=== PATIENT | male | born 1930 | race Caucasian/White ===

== ENCOUNTER 2017-06-20 11:36 | Inpatient (IN) | payer BC, OTHER ==
[~2017-06-20] VITALS: Ht 170.2 cm; Wt 93.4 kg
[~2017-06-20 11:36] MED LIST: ADLSR60 PO; ASPI81TA25 PO; ATEN50TA PO; ATOR-24 PO; CLOP1TAB5 PO; TRAM-10 PO
[2017-06-20] MEDS ORDERED: CEFTRIAXONE SOD INJ 1 GM ADDVIAL IV STA (12:05)
[2017-06-20] MEDS ORDERED: IPRATROPIUM BROMIDE NEB SOLN 0.02% 2.5 ML VIAL INH STA (12:05)
[2017-06-20] MEDS ORDERED: LEVALBUTEROL 1.25MG/0.5ML NEB INH STA (12:05)
--- NOTE | 2017-06-20 12:22 | EMERGENCY ROOM VISIT NOTE ---
History Report prepared by Wilberto: Simba Neal Under the Supervision of: Dr. Kd Dorado M.D. First contact with patient: 11:55 Chief Complaint: CARDIAC ASSESSMENT Stated Complaint: NEW ONSET AFIB Nursing Triage Summary: patient reports "I had a head cold for the past couple days. productive yellow cough. I went to the dr and they sent me here" patient has new onset afib. patient denies any chest pain. patient states he is short of breath. productive cough thick yellow sputum History of Present Illness The patient is a 86 year old male who presents to the Emergency Room for evaluation of persistent new-onset A-fib. The patient was seen by his PCP just prior to arrival for five days of cold-like symptoms, and was referred to the ED when found to be in new onset A-fib. He denies any chest pain, SOB, palpitations, fevers or chills. His cold-like symptoms include productive cough and fatigue. His cough produces a thick, yellow sputum. The patient took left over Amoxicillin for his cold, but has not taken any over the counter cold medications. He has a history of one cardiac stent placement. He has no history of COPD or emphysema. The patient has no history of CVA, or GI bleed. Source of History: patient Onset: Just prior to arrival Quality: other (new-onset A-fib) Timing: other (persistent) Associated Symptoms: + cough, + fatigue, No fevers, No chills, No chest pain , No SOB Note: The patient denies palpitations. Review of Systems See HPI for pertinent positives & negatives. A total of 10 systems reviewed and were otherwise negative. Past Medical & Surgical Medical Problems: (1) Arthroscopy of knee joint (2) Benign hypertension (3) Enlarged prostate (4) Excision of skin cancer (5) Hypercholesterolemia (6) New onset a-fib (7) New onset a-fib (8) Prostate surgery (9) Skin cancer Family History No pertinent family history stated. Social History Smoking Status: Never Smoker Alcohol Use: none Drug Use: none Marital Status: Housing Status: lives with significant other Occupation Status: retired Current/Historical Medications Scheduled Aspirin (Aspirin Ec), 81 MG PO DAILY Atenolol (Tenormin), 50 MG PO DAILY Atorvastatin (Lipitor), 80 MG PO DAILY Lisinopril (Prinivil), 5 MG PO DAILY Nifedipine (Nifedipine Er), 1 TAB PO DAILY Scheduled PRN Tramadol (Ultram), 50 MG PO Q8H PRN for Pain Allergies Coded Allergies: Sulfa Antibiotics (Verified Allergy, Unknown, `, 06/20/17) Physical Exam Vital Signs Date Time Temp Pulse Resp B/P (MAP) Pulse Ox O2 Delivery O2 Flow Rate FiO2 06/20/17 15:42 81 16 137/95 96 Room Air 06/20/17 13:52 77 16 122/76 97 Room Air 06/20/17 12:32 77 13 123/79 97 Room Air 06/20/17 12:25 77 13 94 Room Air 06/20/17 12:18 77 06/20/17 11:41 94 Room Air 06/20/17 11:41 94 Room Air 06/20/17 11:41 36.7 82 20 141/87 94 Room Air Physical Exam GENERAL: Patient is in no acute distress. HEENT: No acute trauma, normocephalic atraumatic, mucous membranes moist, no nasal congestion, no scleral icterus. NECK: No stridor, no adenopathy, no meningismus, trachea is midline. LUNGS: Wheezing bilaterally. Persistent dry cough noted. No respiratory distress , breath sounds are equal. HEART: Unable to hear cardiac tones secondary to lung sounds. ABDOMEN: Soft, nontender, bowel sounds positive, no hernias, no peritonitis. EXTREMITIES: No cyanosis, full range of motion of all the joints without pain or difficulty, no signs for acute trauma. Mild bilateral pedal edema. NEUROLOGIC: Oriented x 3, no acute motor or sensory deficits, no focal weakness. SKIN: No rash, no jaundice, no diaphoresis. Medical Decision & Procedures ER Provider Diagnostic Interpretation: Radiology results as stated below per my review and radiologist interpretation: CHEST ONE VIEW PORTABLE FINDINGS: There is mild elevation of the right hemidiaphragm. No consolidation is identified to suggest pneumonia and there is no evidence of pulmonary edema. Mild cardiomegaly is noted. IMPRESSION: 1. No acute cardiopulmonary findings. 2. Mild cardiomegaly without radiographic evidence of pulmonary edema. Electronically signed by: Pete Yan M.D. 06/20/2017 1:05 PM Laboratory Results 06/20/17 12:54 06/20/17 12:54 Test 06/20/17 12:20 06/20/17 12:54 Influenza Type A Antigen Neg for Influ A (NEG) Influenza Type B Antigen Neg for Influ B (NEG) Red Blood Count 4.82 M/uL (4.7-6.1) Mean Corpuscular Volume 90.9 fL (80-100) Mean Corpuscular Hemoglobin 30.3 pg (25-34) Mean Corpuscular Hemoglobin Concent 33.3 g/dl (32-36) RDW Standard Deviation 50.4 fL (36.4-46.3) RDW Coefficient of Variation 15.0 % (11.5-14.5) Mean Platelet Volume 10.5 fL (7.4-10.4) Prothrombin Time 10.3 SECONDS (9.0-12.0) Prothromb Time International Ratio 1.0 (0.9-1.1) Activated Partial Thromboplast Time 31.3 SECONDS (21.0-31.0) Partial Thromboplastin Ratio 1.2 Anion Gap 7.0 mmol/L (3-11) Est Creatinine Clear Calc Drug Dose 31.7 ml/min Estimated GFR () 38.4 Estimated GFR (Non- 33.1 BUN/Creatinine Ratio 15.6 (10-20) Calcium Level 8.3 mg/dl (8.5-10.1) Magnesium Level 2.2 mg/dl (1.8-2.4) Total Bilirubin 0.7 mg/dl (0.2-1) Aspartate Amino Transf (AST/SGOT) 36 U/L (15-37) Alanine Aminotransferase (ALT/SGPT) 28 U/L (12-78) Alkaline Phosphatase 74 U/L (45-117) Troponin I 0.068 ng/ml (0-0.045) Total Protein 7.8 gm/dl (6.4-8.2) Albumin 3.3 gm/dl (3.4-5.0) Globulin 4.5 gm/dl (2.5-4.0) Albumin/Globulin Ratio 0.7 (0.9-2) Thyroid Stimulating Hormone (TSH) 1.690 uIu/ml (0.300-4.500) Laboratory results reviewed by me. Medications Administered Medications (Trade) Dose Ordered Sig/Andrew Route Start Time Stop Time Status Last Admin Dose Admin Levalbuterol (Xopenex 1.25MG/ 0.5ML Neb) 1.25 mg NOW STAT INH 06/20/17 12:05 06/20/17 12:07 DC 06/20/17 12:25 1.25 MG Ipratropium [place] (Atrovent 0.02% 0.5MG/2.5ML Neb) 0.5 mg NOW STAT INH 06/20/17 12:05 06/20/17 12:07 DC 06/20/17 12:25 0.5 MG Ceftriaxone Sodium (Rocephin Inj) 1 gm NOW STAT IV 06/20/17 12:05 06/20/17 12:07 DC 06/20/17 13:12 1 GM ECG Indication: other (new-onset A-fib) Rate (beats per minute): 76 Rhythm: atrial fibrillation Findings: PVC, RBBB, other (No obvious ischemia. ) ED Course 1201: The patient was evaluated in room B10. A complete history and physical exam was performed. 1205: Ordered Rocephin Inj 1 gm IV, Atrovent 0.02% 0.5 mg/2.5 mL Neb 0.5 mg INH , Xopenex 1.25 mg/0.5 mL Neb 1.25 mg INH. 1416: Upon reexamination the patient is resting comfortably. I discussed results and treatment plan with the patient. He verbalizes agreement and understanding. I spoke with Dr. La Yu of the [facility]. We discussed the patient's results and findings. The patient will be evaluated by [facility] for further management. Medical Decision The patient is a 86 year old male who presents to the ED with complaints of new- onset A-fib. Differential diagnoses considered include pneumonia, bronchitis, CHF, dysrhythmia, OK, electrolyte imbalance, anemia, and dehydration. There is no leukocytosis or concerning anemia. Renal panel testing shows some renal insufficiency, this appears baseline. No significant electrolyte abnormality requiring correction. The patient appears to be in a euthyroid state. There is no hepatitis. Chest x-ray does not show pneumonia or CHF. EKG shows A. fib which is rate controlled, there is a right bundle branch block. Cardiac enzyme testing times one is slightly elevated-this could indicate some cardiac injury/strain. Blood cultures are pending, influenza testing is negative. The patient received a Xopenex Atrovent neb. He was given a dose of IV ceftriaxone as antibiotic coverage. The patient is resting comfortably. He is not toxic in appearance. Given the respiratory issues, given the new onset A. fib and given the elevation to the troponin, a hospital stay was felt warranted. I spoke to the patient and case management. The on-call hospitalist was consulted. Medication Reconcilliation Current Medication List: was personally reviewed by me Blood Pressure Screening Patient's blood pressure: Elevated blood pressure Blood pressure disposition: Elevated BP felt to be situational Consults Time Called: 1411 Consulting Physician: Dr. La Yu [facility] Hospitalist Returned Call: [phone] Discussed the patient's case. The patient will be evaluated for further management. Impression Primary Impression: New onset a-fib Additional Impressions: Acute bronchitis Wheezing Elevated troponin Scribe Attestation The scribe's documentation has been prepared under my direction and personally reviewed by me in its entirety. I confirm that the note above accurately reflects all work, treatment, procedures, and medical decision making performed by me. Departure Information Dispostion Being Evaluated By Hospitalist Referrals No Doctor, Assigned (PCP) Patient Instructions [facility] Problem Qualifiers Additional Impressions: Acute bronchitis Bronchitis organism: unspecified organism Qualified Codes: J20.9 - Acute bronchitis, unspecified
[2017-06-20 12:25] VITALS: PULSE 77; O2SAT 94
--- NOTE | 2017-06-20 13:06 | DIAGNOSTIC IMAGING REPORT ---
CHEST ONE VIEW PORTABLE CLINICAL HISTORY: Chest pain. Separate atrial fibrillation COMPARISON STUDY: Chest radiograph April 06, 2014. FINDINGS: There is mild elevation of the right hemidiaphragm. No consolidation is identified to suggest pneumonia and there is no evidence of pulmonary edema. Mild cardiomegaly is noted. IMPRESSION: 1. No acute cardiopulmonary findings. 2. Mild cardiomegaly without radiographic evidence of pulmonary edema. Electronically signed by: Pete Yan M.D. 06/20/2017 1:05 PM Dictated Date/Time: 06/20/2017 1:03 PM
[2017-06-20] MEDS ORDERED: NIFE1TAB56 PO (13:07)
[2017-06-20] MEDS ORDERED: LISI-729 PO (13:07)
[2017-06-20] MEDS ORDERED: ATOR-26 PO (13:07)
[2017-06-20] MEDS ORDERED: TRAM-10 PO (13:07)
[2017-06-20] MEDS ORDERED: ATEN50TA8 PO (13:07)
[2017-06-20] MEDS ORDERED: ASPI81TA28 PO (13:07)
[2017-06-20 13:12] LABS: HEMATOCRIT 43.8 % (42-52); MEAN CELL VOLUME 90.9 fL (80-100); MEAN CORPUSCULAR HEMOGLOBIN 30.3 pg (25-34); MEAN CORPUSCULAR HGB CONC 33.3 g/dl (32-36); MEAN PLATELET VOLUME 10.5 fL (7.4-10.4); PLATELET COUNT 174 K/uL (130-400); RED BLOOD COUNT 4.82 M/uL (4.7-6.1); WHITE BLOOD COUNT 5.85 K/uL (4.8-10.8)
[2017-06-20 13:28] LABS: BUN/CREATININE RATIO 15.6 (10-20); CALCIUM 8.3 mg/dl (8.5-10.1); CREATININE 1.79 mg/dl (0.60-1.40); MAGNESIUM 2.2 mg/dl (1.8-2.4); POTASSIUM 3.7 mmol/L (3.5-5.1)
[2017-06-20 13:45] LABS: PARTIAL THROMBOPLASTIN RATIO 1.2; PROTHROMBIN TIME (PATIENT) 10.3 SECONDS (9.0-12.0)
[2017-06-20 13:46] LABS: ALB/GLOB RATIO 0.7 (0.9-2); THYROID STIMULATING HORMONE 1.69 uIu/ml (0.300-4.500)
[2017-06-20] MEDS ORDERED: ACETAMINOPHEN 325 MG TAB PO PRN (15:45)
[2017-06-20] MEDS ORDERED: IV FLUIDS COMPLETED PRN (16:00)
--- NOTE | 2017-06-20 16:23 | History and Physical ---
History & Physical Date & Time of Service: Jun 20, 2017 at 15:19 Chief Complaint: New Onset Afib Primary Care Physician: No Doctor, Assigned History of Present Illness Mr. Hall has been feeling ill for the past five days with running nose and cough with thick yellow mucous and wheezing, no fever or chills, no sob. has bronchitis. He felt that he was improving but since his was going to the doctor, he thought he would go too. When the pcp listened to him at the office, he was in an irregular rhythm so an EKG was performed and he was found to be in a.fib which is new for him. He does feel lightheaded when he stands but otherwise denies cardiac symptoms. ROS Constitutional: no chills, aches, sweats or fever Respiratory: see HPI Cardiac: no chest pain, palpitations, edema, orthopnea GI: no abdominal pain, nausea, vomiting, diarrhea or constipation : no dysuria or hesitancy Extremities: no joint pain or weakness Skin: no rash All other systems reviewed and negative Pmhx : htn, hld, ischemic cariomyopathy, [place] with stent, CAD, BPH, Past Medical/Surgical History Medical Problems: (1) Arthroscopy of knee joint Status: Resolved (2) Benign hypertension Status: Chronic (3) Enlarged prostate Status: Chronic (4) Excision of skin cancer Status: Resolved (5) Hypercholesterolemia Status: Chronic (6) Prostate surgery Status: Resolved (7) Skin cancer Status: Chronic Social History Smoking Status: Current Every Day Smoker (quit fifty years ago) Smokeless Tobacco Use: No Alcohol Use: socially Drug Use: none Marital Status: Housing status: lives with significant other Occupational Status: retired ([employer]) Immunizations History of Influenza Vaccine: Yes History of Tetanus Vaccine?: Unknown History of Pneumococcal: Yes Pneumococcal Date: Jul 20, 2010 History of Hepatitis B Vaccine: No Multi-Drug Resistant Organisms History of MDRO: No Allergies Coded Allergies: Sulfa Antibiotics (Verified Allergy, Unknown, `, 06/20/17) Home Medications Scheduled Aspirin (Aspirin Ec), 81 MG PO DAILY Atenolol (Tenormin), 50 MG PO DAILY Atorvastatin (Lipitor), 80 MG PO DAILY Lisinopril (Prinivil), 5 MG PO DAILY Nifedipine (Nifedipine Er), 1 TAB PO DAILY Scheduled PRN Tramadol (Ultram), 50 MG PO Q8H PRN for Pain Physical Exam Vital Signs Date Time Temp Pulse Resp B/P (MAP) Pulse Ox O2 Delivery O2 Flow Rate FiO2 06/20/17 13:52 77 16 122/76 97 Room Air 06/20/17 12:32 77 13 123/79 97 Room Air 06/20/17 12:25 77 13 94 Room Air 06/20/17 12:18 77 06/20/17 11:41 94 Room Air 06/20/17 11:41 94 Room Air 06/20/17 11:41 36.7 82 20 141/87 94 Room Air General: no distress Eyes: normal inspection, PERLL Respiratory: chest non tender, coarse bases with expiratory wheezing bilaterally , no respiratory distress, no accessory muscle use Cardiac: regular rate and rhythm, no rub or gallop, no murmur, no edema, GI/: active bowel sounds, no abd pain or tenderness, soft, non distended Extremities: normal range of motion, normal strength, non tender Neuro/Psych: alert and oriented x 3, normal mood and affect Skin: normal color, dry Diagnostics Laboratory Results Results Past 24 Hours Test 06/20/17 12:20 06/20/17 12:54 Range/Units Influenza Type A Antigen Neg for Influ A NEG Influenza Type B Antigen Neg for Influ B NEG White Blood Count 5.85 4.8-10.8 K/uL Red Blood Count 4.82 4.7-6.1 M/uL Hemoglobin 14.6 14.0-18.0 g/dL Hematocrit 43.8 42-52 % Mean Corpuscular Volume 90.9 80-100 fL Mean Corpuscular Hemoglobin 30.3 25-34 pg Mean Corpuscular Hemoglobin Concent 33.3 32-36 g/dl RDW Standard Deviation 50.4 36.4-46.3 fL RDW Coefficient of Variation 15.0 11.5-14.5 % Platelet Count 174 130-400 K/uL Mean Platelet Volume 10.5 7.4-10.4 fL Prothrombin Time 10.3 9.0-12.0 SECONDS Prothromb Time International Ratio 1.0 0.9-1.1 Activated Partial Thromboplast Time 31.3 21.0-31.0 SECONDS Partial Thromboplastin Ratio 1.2 Sodium Level 140 136-145 mmol/L Potassium Level 3.7 3.5-5.1 mmol/L Chloride Level 109 98-107 mmol/L Carbon Dioxide Level 24 21-32 mmol/L Anion Gap 7.0 3-11 mmol/L Blood Urea Nitrogen 28 7-18 mg/dl Creatinine 1.79 0.60-1.40 mg/dl Est Creatinine Clear Calc Drug Dose 31.7 ml/min Estimated GFR () 38.4 Estimated GFR (Non- 33.1 BUN/Creatinine Ratio 15.6 10-20 Random Glucose 90 70-99 mg/dl Calcium Level 8.3 8.5-10.1 mg/dl Magnesium Level 2.2 1.8-2.4 mg/dl Total Bilirubin 0.7 0.2-1 mg/dl Aspartate Amino Transf (AST/SGOT) 36 15-37 U/L Alanine Aminotransferase (ALT/SGPT) 28 12-78 U/L Alkaline Phosphatase 74 45-117 U/L Troponin I 0.068 0-0.045 ng/ml Total Protein 7.8 6.4-8.2 gm/dl Albumin 3.3 3.4-5.0 gm/dl Globulin 4.5 2.5-4.0 gm/dl Albumin/Globulin Ratio 0.7 0.9-2 Thyroid Stimulating Hormone (TSH) 1.690 0.300-4.500 uIu/ml Microbiology Results 06/20/17 Blood Culture, Received Pending 06/20/17 Blood Culture, Received Pending CXR normal EKG Atrial fibrillation with premature ventricular or aberrantly conducted complexes Left axis deviation Right bundle branch block Abnormal ECG When compared with ECG of 25-MAR-2013 07:04, with premature ventricular or aberrantly conducted complexes are now Present Confirmed by KEV VEGA ([id number]) on 06/20/2017 2:35:06 PM Impression Assessment and Plan Mr. Hall is an 86 year old man here for new onset A.fib and acute bronchitis A.fib, increased troponin, EKG changes - admit tele - Last EKG was 2012 at the time of his WA, currently he appears to have some depressions in his lateral leads - Echo - continue atenolol - consult cardiology - appreciate recommendations - CT scan of head for lightheadedness - will start heparin gtt when CT resulted if negative and await cards input for longer term anticoag - trend trops Acute bronchitis - with his self treatment with amoxicillin and and Rocephin in ED, he has had 3 days of abx so far, will continue amox for two more days. - nebs, prednisone - blood, sputum cultures pending, flu negative - cbc am CAD, HLD, HTN - continue ASA, atenolol, statin, nifedipine - EKG with chest pain CKD stage III - renal dosing medications, avoid nephrotoxins - prp am - baseline appears to be around 1.6, 1.79 today - hold of on IVF as patient has EF of 35% on echo 2013 and is taking good po I personally interviewed and examined the patient. I agree with history of present illness and physical exam mentioned above, I also performed my own history taking and examination. Past medical history and review of system has been obtained by myself I reviewed all pertinent labs and studies Reviewed current medications I discussed and formulated of the assessment and plan mentioned above by Shae Yovany Please refer to the Summary mentioned below. General Appearance: not in acute distress /obese Eyes: normal Sclerae, extraocular muscle intact ENT: hearing grossly normal Neck: supple Respiratory/Chest: normal air entry bilateral , no respiratory distress, no accessory muscle use, no rhonchi Cardiovascular: irregular rate, rhythm, + systolic murmur Abdomen: non tender, soft, no masses, but appears distended Extremities: no edema Neurologic/Psychiatric: Awake alert oriented only to place and person moves all extremities sensation intact cranial nerves II-12 appear to be intact Skin: normal color, warm/dry, no rash 86/M P/W URTI/cough, found to have A fib new onset and positive trop Assessment new onset Afib bronchitis clinically suspected HEIDI elevated trop Plan Admit to telemetry Consult cardio Obtain 2-D echo continue Abx for bronchitis Continue home meds check HgbA1C to R/O Diabetes mellitus DVT prophylaxis Madeleine Yu MD, [facility] Telemetry Advanced Directives Existing Advance Directive: No Existing Living Will: No Existing Power of Senior Attorney: No Existing Health Care Proxy: No Resuscitation Status DO NOT RESUSCITATE VTE Prophylaxis Risk Level: Moderate Given or contraindicated: SCD's Social Service Consult None Apply
--- NOTE | 2017-06-20 16:47 | DIAGNOSTIC IMAGING REPORT ---
CT HEAD WITHOUT CONTRAST (CT) CLINICAL HISTORY: Lightheadedness. Set atrial fibrillation. COMPARISON STUDY: No previous studies for comparison. TECHNIQUE: Axial CT of the brain is performed from the vertex to the skull base. IV contrast was not administered for this examination. A dose lowering technique was utilized adhering to the principles of ALARA. CT DOSE: 638.56 mGycm FINDINGS: No intra or extra-axial mass lesions are visualized. There is no CT evidence of acute cortical infarction. There is no evidence of midline shift. There is no acute hemorrhage. No calvarial fractures are visualized. There are patchy white matter hypodensities likely on a small vessel basis. 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 There is a lacunar type infarct in the region of the left external capsule. There is no evidence of pathologic ventricular dilatation. There is trace fluid within the sphenoid sinus. There is moderately extensive mucosal thickening within the ethmoid sinuses. IMPRESSION: 1. No acute intracranial findings 2. Moderately extensive mucosal thickening within the ethmoid sinuses Electronically signed by: Yeison Brown M.D. 06/20/2017 4:45 PM Dictated Date/Time: 06/20/2017 4:44 PM
[2017-06-20 16:54] VITALS: BP 155/80; PULSE 82; TEMP 36.4; O2SAT 93; Ht 170.2 cm; Wt 93.4 kg
[2017-06-20] MEDS: ALBUT/IPRATROP 3MG/0.5MG NEB 3 ML VIAL INH SCH ×2 (18:13→19:17)
[2017-06-20] MEDS ORDERED: HEPARIN IV LOW DOSE NO BOLUS SCH (18:36)
[2017-06-20 19:17] VITALS: PULSE 71; O2SAT 92
[2017-06-20 19:20] VITALS: BP 118/64; PULSE 99; TEMP 36.4; O2SAT 98
[2017-06-20] MEDS: HEPARIN 25,000 UNIT/500ML D5W 500 ML IV PRN (19:37)
[2017-06-20 19:43] LABS: BASO % 0.5 %; BASO ABS # 0.03 K/uL (0-0.2); EOS % 4.1 %; HEMATOCRIT 40.4 % (42-52); IG% 0.2 %; LYMPH % 40.9 %; LYMPH ABS # 2.32 K/uL (1.2-3.4); MEAN CELL VOLUME 90.8 fL (80-100); MEAN CORPUSCULAR HEMOGLOBIN 31.2 pg (25-34); MEAN PLATELET VOLUME 10.7 fL (7.4-10.4); MONO % 10.8 %; NEUT % 43.5 %; PLATELET COUNT 175 K/uL (130-400); RED BLOOD COUNT 4.45 M/uL (4.7-6.1); WHITE BLOOD COUNT 5.67 K/uL (4.8-10.8)
[2017-06-20 19:44] LABS: COMPLETE YES; MEAN CORPUSCULAR HGB CONC 34.4 g/dl (32-36)
[2017-06-20 19:48] LABS: PARTIAL THROMBOPLASTIN RATIO 1.2; PROTHROMBIN TIME (PATIENT) 10.7 SECONDS (9.0-12.0)
[2017-06-20 20:00] VITALS: O2SAT 98
[2017-06-20] MEDS ORDERED: AZITHROMYCIN 250 MG TAB PO ONE (22:00)
[2017-06-21] VITALS (17 sets, daily range): BP systolic 124–148; BP diastolic 70–84; PULSE 72–107; TEMP 36.4–37; O2SAT 91–98
[2017-06-21 01:52] LABS: PARTIAL THROMBOPLASTIN RATIO 1.9
[2017-06-21] MEDS: ALBUT/IPRATROP 3MG/0.5MG NEB 3 ML VIAL INH SCH ×4 (07:02→20:09)
[2017-06-21 07:27] LABS: HEMATOCRIT 44.8 % (42-52); MEAN CELL VOLUME 91.1 fL (80-100); MEAN CORPUSCULAR HEMOGLOBIN 31.1 pg (25-34); MEAN CORPUSCULAR HGB CONC 34.2 g/dl (32-36); MEAN PLATELET VOLUME 10.5 fL (7.4-10.4); PLATELET COUNT 191 K/uL (130-400); RED BLOOD COUNT 4.92 M/uL (4.7-6.1); WHITE BLOOD COUNT 4.47 K/uL (4.8-10.8)
[2017-06-21] MEDS: AZITHROMYCIN 250 MG TAB PO SCH (07:58)
[2017-06-21] MEDS: LACTOBACILLUS ACIDOPHILUS 1 GM PACK PO SCH ×3 (07:58→16:37)
[2017-06-21 07:59] LABS: BUN/CREATININE RATIO 15.8 (10-20); CALCIUM 8.8 mg/dl (8.5-10.1); CHOLESTEROL/HDL RATIO 3.1; CREATININE 1.84 mg/dl (0.60-1.40)
[2017-06-21 08:12] LABS: ESTIMATED AVERAGE GLUCOSE 114 mg/dl; HA1C FLAG Normal (Normal)
--- NOTE | 2017-06-21 08:59 | Hospitalist Progress Note ---
Hospitalist Progress Note Date of Service Jun 21, 2017. Subjective Pt evaluation today including: conversation w/ patient, physical exam, chart review, lab review, review of studies Pain: None PO Intake: Good Voiding: no voiding problems The patient was seen and examined this morning. Pt reports feeling very well today. He denies feelings of lightheadedness, dizziness, chest pain, shortness of breath. He has not truly exerted himself to determine if he's LESLIE. He has ambulated to the bathroom but denies SOB. Pt is currently on a heparin gtt and awaiting cardiology to see him. Pt does report a cough which is occasionally productive with yellow mucous. He has not tried mucinex at home and doesn't want to at this time because "I don't want to take more pills"; discussion held that this was for temporary relief and he still denies. Continuing abx x day #4. He denies any fever, chills or sweats. ROS: 6 point ROS reviewed and otherwise negative. Objective Vital Signs Date Time Temp Pulse Resp B/P (MAP) Pulse Ox O2 Delivery O2 Flow Rate FiO2 06/21/17 07:08 36.4 107 20 142/84 (103) 92 Room Air 06/21/17 07:02 85 18 93 Room Air 06/21/17 04:10 98 Room Air 06/21/17 04:01 36.6 87 21 138/84 (102) 91 Room Air 06/21/17 00:05 36.6 80 20 125/75 (92) 93 Room Air 06/21/17 00:00 98 Room Air 06/20/17 20:00 98 Room Air 06/20/17 19:20 36.4 99 16 118/64 (82) 98 Room Air 06/20/17 19:17 71 13 92 Room Air 06/20/17 16:54 36.4 82 20 155/80 93 Room Air 06/20/17 16:23 36.7 78 18 151/89 96 06/20/17 15:42 81 16 137/95 96 Room Air 06/20/17 13:52 77 16 122/76 97 Room Air 06/20/17 12:32 77 13 123/79 97 Room Air 06/20/17 12:25 77 13 94 Room Air 06/20/17 12:18 77 06/20/17 11:41 94 Room Air 06/20/17 11:41 94 Room Air 06/20/17 11:41 36.7 82 20 141/87 94 Room Air Physical Exam General Appearance: WD/WN, no apparent distress Eyes: PERRL, EOMI ENT: hearing grossly normal, pharynx normal Neck: supple, no JVD Respiratory/Chest: no respiratory distress, no accessory muscle use, + pertinent finding (on room air, coarse breath sounds throughout with +exp wheeze. 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7 fL Prothrombin Time 10.3 SECONDS 10.7 SECONDS Prothromb Time International Ratio 1.0 1.0 Activated Partial Thromboplast Time 31.3 SECONDS 31.5 SECONDS Partial Thromboplastin Ratio 1.2 1.2 Sodium Level 140 mmol/L Potassium Level 3.7 mmol/L Chloride Level 109 mmol/L Carbon Dioxide Level 24 mmol/L Anion Gap 7.0 mmol/L Blood Urea Nitrogen 28 mg/dl Creatinine 1.79 mg/dl Est Creatinine Clear Calc Drug Dose 31.7 ml/min Estimated GFR () 38.4 Estimated GFR (Non- 33.1 BUN/Creatinine Ratio 15.6 Random Glucose 90 mg/dl Calcium Level 8.3 mg/dl Magnesium Level 2.2 mg/dl Total Bilirubin 0.7 mg/dl Aspartate Amino Transf (AST/SGOT) 36 U/L Alanine Aminotransferase (ALT/SGPT) 28 U/L Alkaline Phosphatase 74 U/L Troponin I 0.068 ng/ml 0.074 ng/ml Total Protein 7.8 gm/dl Albumin 3.3 gm/dl Globulin 4.5 gm/dl Albumin/Globulin Ratio 0.7 Thyroid Stimulating Hormone (TSH) 1.690 uIu/ml Neutrophils (%) (Auto) 43.5 % Lymphocytes (%) (Auto) 40.9 % Monocytes (%) (Auto) 10.8 % Eosinophils (%) (Auto) 4.1 % Basophils (%) (Auto) 0.5 % Neutrophils # (Auto) 2.47 K/uL Lymphocytes # (Auto) 2.32 K/uL Monocytes # (Auto) 0.61 K/uL Eosinophils # (Auto) 0.23 K/uL Basophils # (Auto) 0.03 K/uL Immature Granulocyte % (Auto) 0.2 % Immature Granulocyte # (Auto) 0.01 K/uL Test 06/21/17 01:21 06/21/17 07:08 06/21/17 08:05 Activated Partial Thromboplast Time 48.8 SECONDS Partial Thromboplastin Ratio 1.9 Troponin I 0.062 ng/ml White Blood Count 4.47 K/uL Red Blood Count 4.92 M/uL Hemoglobin 15.3 g/dL Hematocrit 44.8 % Mean Corpuscular Volume 91.1 fL Mean Corpuscular Hemoglobin 31.1 pg Mean Corpuscular Hemoglobin Concent 34.2 g/dl RDW Standard Deviation 50.1 fL RDW Coefficient of Variation 14.9 % Platelet Count 191 K/uL Mean Platelet Volume 10.5 fL Sodium Level 137 mmol/L Potassium Level mmol/L 3.5 mmol/L Chloride Level 105 mmol/L Carbon Dioxide Level 23 mmol/L Anion Gap 9.0 mmol/L Blood Urea Nitrogen 29 mg/dl Creatinine 1.84 mg/dl Est Creatinine Clear Calc Drug Dose 30.2 ml/min Estimated GFR () 37.1 Estimated GFR (Non- 32.0 BUN/Creatinine Ratio 15.8 Random Glucose 139 mg/dl Estimated Average Glucose 114 mg/dl Hemoglobin A1c 5.6 % Calcium Level 8.8 mg/dl Triglycerides Level 107 mg/dl Cholesterol Level 151 mg/dl HDL Cholesterol 49 mg/dl LDL Cholesterol, Calculated 81 mg/dl VLDL Cholesterol, Calculated 21 mg/dl Cholesterol/HDL Ratio 3.1 Assessment and Plan This is a 86 yo M presenting with new onset A.fib and acute bronchitis New onset A.fib Elevated troponin EKG changes - admit tele - Last EKG was 2012 at the time of his OK, currently he appears to have some depressions in his lateral leads - repeat this am. - Echo pending - consult cardiology - appreciate recs- await cards input for longer term anticoagulation - Pt follows with Dr. Olmedo as an outpatient - CT scan of head for lightheadedness - negative - showing ethmoid sinus with thickened mucous likely sinusitis - Continue on heparin gtt for now - Troponins trending back down on 3rd set. - continue atenolol, statin and asa daily - Holding lisinopril 5 mg for now with slight bump in Cr. Acute bronchitis - with his self treatment with amoxicillin and and Rocephin in ED, he has had 3 days of abx at time of admission - 06/21 = day #4. Continue amox for 5 day course. - duonebs prn - prednisone 40 mg daily with taper down - BCx in process, sputum cultures pending, flu negative - no leukocytosis CAD, HLD, HTN - continue ASA, atenolol, statin - EKG with chest pain CKD stage III - renal dosing medications, avoid nephrotoxins - prp am - baseline appears to be around 1.6, - 1.8 today - Holding home lisinopril - hold of on IVF as patient has EF of 35% on echo 2013 - will encourage Po intake. Likely reactant from afib. CODE STATUS: DNR Disposition: From home, lives with . Discharge possible in 1 day.
[2017-06-21] MEDS ORDERED: AMOXICILLIN 500 MG CAP PO SCH (09:00)
[2017-06-21] MEDS ORDERED: CEFTRIAXONE SOD INJ 1 GM in DEXTROSE 5% ADD-VANTAGE 50ML 50 ML IV SCH (10:00)
[2017-06-21] MEDS ORDERED: PERFLUTREN LIPID MICROSPHERE (DEFINITY) IV ONE (10:56)
[2017-06-21] MEDS: ASPIRIN 81 MG ECTAB PO SCH (12:08)
[2017-06-21] MEDS: ATORVASTATIN 40 MG TAB PO SCH (12:08)
--- NOTE | 2017-06-21 14:56 | ECHOCARDIOGRAM REPORT ---
*NOTICE TO RECEIVING DEMOCRAT AGENCY This information is strictly Confidential and protected under [place] law. [place] law prohibits you from making any further disclosure of this information unless further disclosure is expressly permitted by the written consent of the person to whom it pertains or is authorized by law. A general authorization for the release of medical or other information is not sufficient for this purpose. Hospital accepts no responsibility if the information is made available to any other person, INCLUDING THE PATIENT. Interpretation Summary * Name: GHANSHYAM JEWELL Study Date: 06/21/2017 10:21 AM BP: 138/84 mmHg * Patient Location: C.2T\S\E222\S\1 HR: 89 * : 1930 (M/d/yyy) Gender: Male Height: 67 in * Age: 86 yrs Ethnicity: [place] Weight: 214 lb * Ordering Physician: Shae Pedroza * Referring Physician: Self, Referred * Performed By: Tj Jones RDCS * * Reason For Study: A-fib * BSA: 2.1 m2 * -- Conclusions -- * The left ventricle is normal in size. * There is severe concentric left ventricular hypertrophy. * Left ventricular systolic function is mildly reduced. * Ejection Fraction = 40-45%. * The distal anterior wall, apex inferoapex, and distal septum are severely hypokinetic. * The right ventricular cavity size is enlarged (proximal parasternal long axis right ventricular outflow tract dimension >3.3 cm). * The right ventricular systolic function is normal as assessed by tricuspid annular plane systolic excursion (TAPSE) (normal >1.5 cm). * The left atrium is moderately dilated. * Aortic valve sclerosis mild, without significant aortic valvular stenosis. * Mild aortic regurgitation. * There is mild to moderate mitral regurgitation. * Right ventricular systolic pressure is elevated at 30-40mmHg. Procedure Details * A complete two-dimensional transthoracic echocardiogram was performed (2D, M-mode, Doppler and color flow Doppler). * The study was technically difficult, but visualization was adequate with the administration of Definity ultrasound contrast. * A contrast injection of Definity was performed to improve assessment of LV function. * Contrast was injected into an intravenous site in the left arm. * One vial of Definity ultrasound contrast was diluted in normal saline to a total volume of 10 ml. A total of '3' ml of solution was administered during imaging. * Lot # [id number] of Definity utilized for procedure. * Expiration date . * The attending nurse who injected the contrast agent was BELEN Roque. Left Ventricle * The left ventricle is normal in size. * There is severe concentric left ventricular hypertrophy. * Left ventricular systolic function is mildly reduced. * Ejection Fraction = 40-45%. * The distal anterior wall, apex inferoapex, and distal septum are severely hypokinetic. Right Ventricle * The right ventricular cavity size is enlarged (proximal parasternal long axis right ventricular outflow tract dimension >3.3 cm). * The right ventricular systolic function is normal as assessed by tricuspid annular plane systolic excursion (TAPSE) (normal >1.5 cm). Atria * The left atrium is moderately dilated. * The right atrium is mildly dilated. Mitral Valve * There is mild mitral annular calcification. * There is mild to moderate mitral regurgitation. Tricuspid Valve * The tricuspid valve is not well visualized, but is grossly normal. * There is mild tricuspid regurgitation. * Right ventricular systolic pressure is elevated at 30-40mmHg. Aortic Valve * Aortic valve sclerosis mild, without significant aortic valvular stenosis. * Mild aortic regurgitation. Pulmonic Valve * The pulmonic valve is not well seen, but is grossly normal. Great Vessels * The aortic root is normal size. Pericardium/Pleural * There is no pericardial effusion. Great Vessels * IVC not seen Left Ventricular Diastolic Function * Diastolic dysfunction, Grade II, consistent with elevated left atrial pressure. MMode 2D Measurements and Calculations IVSd 2.0 cm IVSs 2.4 cm LVIDd 4.1 cm LVIDs 3.1 cm LVPWd 1.7 cm LVPWs 1.9 cm IVS/LVPW 1.2 FS 25.0 % EDV(Teich) 73.6 ml ESV(Teich) 36.8 ml EF(Teich) 49.9 % EDV(cubed) 68.1 ml ESV(cubed) 28.8 ml EF(cubed) 57.8 % % IVS thick 19.6 % % LVPW thick 12.3 % LV mass(C)d 334.0 grams LV mass(C)dI 160.5 grams/m\S\2 LV mass(C)s 306.5 grams LV mass(C)sI 147.3 grams/m\S\2 SV(Teich) 36.7 ml SI(Teich) 17.6 ml/m\S\2 SV(cubed) 39.4 ml SI(cubed) 18.9 ml/m\S\2 Ao root diam 3.9 cm Ao root area 12.2 cm\S\2 ACS 2.2 cm LA dimension 4.4 cm asc Aorta Diam 3.9 cm LA/Ao 1.1 LVOT diam 2.2 cm LVOT area 3.7 cm\S\2 LVAd ap4 24.6 cm\S\2 LVLd ap4 7.6 cm EDV(MOD-sp4) 66.2 ml EDV(sp4-el) 68.3 ml LVAs ap4 15.5 cm\S\2 LVLs ap4 6.9 cm ESV(MOD-sp4) 28.9 ml ESV(sp4-el) 29.9 ml EF(MOD-sp4) 56.4 % EF(sp4-el) 56.2 % LVAd ap2 25.3 cm\S\2 LVLd ap2 8.2 cm EDV(MOD-sp2) 62.7 ml EDV(sp2-el) 65.8 ml LVAs ap2 15.5 cm\S\2 LVLs ap2 7.1 cm ESV(MOD-sp2) 26.2 ml ESV(sp2-el) 28.5 ml EF(MOD-sp2) 58.1 % EF(sp2-el) 56.7 % LVLd %diff -2.97 % EDV(MOD-bp) 71.2 ml LVLs %diff 5.3 % ESV(MOD-bp) 26.7 ml EF(MOD-bp) 62.6 % SV(MOD-sp4) 37.4 ml SI(MOD-sp4) 17.9 ml/m\S\2 SV(MOD-sp2) 36.5 ml SI(MOD-sp2) 17.5 ml/m\S\2 SV(MOD-bp) 44.5 ml SI(MOD-bp) 21.4 ml/m\S\2 SV(sp4-el) 38.4 ml SI(sp4-el) 18.4 ml/m\S\2 SV(sp2-el) 37.3 ml SI(sp2-el) 17.9 ml/m\S\2 Doppler Measurements and Calculations MV E max anthony 102.3 cm/sec MV dec time 0.19 sec Ao V2 max 137.8 cm/sec Ao max PG 7.6 mmHg Ao max PG (full) 4.5 mmHg TIFFANIE(V,A) 2.4 cm\S\2 TIFFANIE(V,D) 2.4 cm\S\2 AI max anthony 335.6 cm/sec AI max PG 45.0 mmHg AI dec slope 180.9 cm/sec\S\2 AI P1/2t 543.4 msec LV V1 max PG 3.1 mmHg LV V1 mean PG 1.7 mmHg LV V1 max 87.9 cm/sec LV V1 mean 60.2 cm/sec LV V1 VTI 19.0 cm SV(LVOT) 70.3 ml SI(LVOT) 33.8 ml/m\S\2 PA V2 max 101.8 cm/sec PA max PG 4.1 mmHg PI end-d anthony 161.3 cm/sec TR max anthony 287.1 cm/sec
[2017-06-21] MEDS: HEPARIN 25,000 UNIT/500ML D5W 500 ML IV PRN (22:47)
[2017-06-22] VITALS (11 sets, daily range): BP systolic 130–154; BP diastolic 79–90; PULSE 82–94; TEMP 36.3–36.7; O2SAT 92–97
[2017-06-22] MEDS ORDERED: METOPROLOL SUCC 50MG EXT REL TAB PO SCH
[2017-06-22] MEDS: ALBUT/IPRATROP 3MG/0.5MG NEB 3 ML VIAL INH SCH ×3 (06:47→14:37)
[2017-06-22 06:49] LABS: HEMATOCRIT 41.9 % (42-52); MEAN CELL VOLUME 90.5 fL (80-100); MEAN CORPUSCULAR HGB CONC 33.2 g/dl (32-36); MEAN PLATELET VOLUME 10.2 fL (7.4-10.4); PLATELET COUNT 198 K/uL (130-400); RED BLOOD COUNT 4.63 M/uL (4.7-6.1); WHITE BLOOD COUNT 10.46 K/uL (4.8-10.8)
[2017-06-22 07:01] LABS: PARTIAL THROMBOPLASTIN RATIO 2.1
[2017-06-22 07:10] LABS: BUN/CREATININE RATIO 18.9 (10-20); CALCIUM 8.4 mg/dl (8.5-10.1); CREATININE 1.76 mg/dl (0.60-1.40); POTASSIUM 3.7 mmol/L (3.5-5.1)
[2017-06-22 08:16] LABS: PARTIAL THROMBOPLASTIN RATIO 2.2
--- NOTE | 2017-06-22 08:30 | Hospitalist Progress Note ---
Hospitalist Progress Note Date of Service Jun 22, 2017. Subjective Pt evaluation today including: conversation w/ patient, physical exam, chart review, lab review, review of studies Pain: None PO Intake: Good Voiding: no voiding problems The patient was seen and examined this morning. Pt reports doing well today. His son, Ravi is at bedside. Pt denies any chest pain, shortness of breath, palpitations or flutter, shortness of breath. Pt slept well overnight. Still has a slight cough which is nonproductive. Discussion was held regarding likely anticoagulation and further rate control. - Overnight events on tele include afib with rates in the 80s and 90s. Additional Comments: Constitutional: No fever, sweats or chills Eyes: No diplopia, no worsening or blurred vision ENT: normal hearing, no trouble swallowing Respiratory: No cough, sputum, dyspnea at rest or on exertion Cardiovascular: No chest pain, tightness or palpitations Abdomen: No pain, nausea, vomiting, diarrhea or constipation Musculoskeletal: No joint pain, calf pain, swelling Neurologic: No weakness, numbness/tingling, or balance problems Objective Vital Signs Date Time Temp Pulse Resp B/P (MAP) Pulse Ox O2 Delivery O2 Flow Rate FiO2 06/22/17 07:11 36.7 92 20 154/83 (106) 96 06/22/17 06:47 94 16 96 Room Air 06/22/17 04:16 96 Room Air 06/22/17 03:55 36.5 89 20 130/79 (96) 92 Room Air 06/22/17 00:21 96 Room Air 06/21/17 23:42 36.7 91 19 125/70 (88) 97 Room Air 06/21/17 20:00 96 Room Air 06/21/17 19:25 95 16 96 Room Air 06/21/17 19:10 37.0 72 16 124/71 (88) 94 Room Air 06/21/17 16:00 96 Room Air 06/21/17 15:20 36.8 84 18 132/72 (92) 95 Room Air 06/21/17 14:35 80 18 95 Room Air 06/21/17 12:00 95 Room Air 06/21/17 11:30 36.6 94 20 148/74 (98) 95 Room Air 06/21/17 11:15 81 18 98 Room Air Physical Exam Notes: General Appearance: WD/WN, no apparent distress Eyes: PERRL, EOMI ENT: hearing grossly normal, pharynx normal Neck: supple, no JVD Respiratory/Chest: no respiratory distress, no accessory muscle use, + pertinent finding (on room air, breath sounds improved, faint +exp wheeze. 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.) Laboratory Results Last 24 Hours Test 06/22/17 06:28 06/22/17 07:47 White Blood Count 10.46 K/uL Red Blood Count 4.63 M/uL Hemoglobin 13.9 g/dL Hematocrit 41.9 % Mean Corpuscular Volume 90.5 fL Mean Corpuscular Hemoglobin 30.0 pg Mean Corpuscular Hemoglobin Concent 33.2 g/dl RDW Standard Deviation 50.1 fL RDW Coefficient of Variation 15.0 % Platelet Count 198 K/uL Mean Platelet Volume 10.2 fL Activated Partial Thromboplast Time 55.6 SECONDS 56.9 SECONDS Partial Thromboplastin Ratio 2.1 2.2 Sodium Level 141 mmol/L Potassium Level 3.7 mmol/L Chloride Level 109 mmol/L Carbon Dioxide Level 23 mmol/L Anion Gap 10.0 mmol/L Blood Urea Nitrogen 33 mg/dl Creatinine 1.76 mg/dl Est Creatinine Clear Calc Drug Dose 31.6 ml/min Estimated GFR () 39.1 Estimated GFR (Non- 33.8 BUN/Creatinine Ratio 18.9 Random Glucose 101 mg/dl Calcium Level 8.4 mg/dl Assessment and Plan This is a 86 yo M presenting with new onset A.fib and acute bronchitis New onset A.fib Elevated troponin EKG changes - admit tele - Last EKG was 2012 at the time of his ID, at time of admission he appeared to have some depressions in his lateral leads - Echo completed: * -- Conclusions -- * The left ventricle is normal in size. * There is severe concentric left ventricular hypertrophy. * Left ventricular systolic function is mildly reduced. * Ejection Fraction = 40-45%. * The distal anterior wall, apex inferoapex, and distal septum are severely hypokinetic. * The right ventricular cavity size is enlarged (proximal parasternal long axis right ventricular outflow tract dimension >3.3 cm). * The right ventricular systolic function is normal as assessed by tricuspid annular plane systolic excursion (TAPSE) (normal >1.5 cm). * The left atrium is moderately dilated. * Aortic valve sclerosis mild, without significant aortic valvular stenosis. * Mild aortic regurgitation. * There is mild to moderate mitral regurgitation. * Right ventricular systolic pressure is elevated at 30-40mmHg. - consult cardiology - appreciate recs- await cards input for longer term anticoagulation - Pt follows with Dr. Olmedo as an outpatient - Continue on heparin gtt for now - Dr. Ching ordered Eliquis 2.5 mg BID today for anticoagulation - CT scan of head for lightheadedness - negative - showing ethmoid sinus with thickened mucous likely sinusitis - Troponins trending back down on 3rd set. - continue atenolol 50 mg daily, atorvastatin 80 mg daily and asa 81 mg daily - Holding lisinopril 5 mg for now with slight bump in Cr. Acute bronchitis - with his self treatment with amoxicillin and and Rocephin in ED, he has had 3 days of abx at time of admission - 06/21 = day #5. Finish last day - duonebs prn - prednisone 20 mg daily (day # 2) and continue taper down tomorrow - BCx NGTD, pt not producing sputum for culture, flu negative - no leukocytosis - Mucinex for pulmonary toilet, flutter therapy CAD, HLD, HTN - continue ASA, atenolol, statin - EKG with chest pain CKD stage III - renal dosing medications, avoid nephrotoxins - prp am - baseline appears to be around 1.6, - 1.76 today - Holding home lisinopril - hold of on IVF as patient has EF of 35% on echo 2013 - will encourage Po intake. CODE STATUS: DNR Disposition: From home, lives with . Discharge likely within 24 hours.
[2017-06-22] MEDS: LACTOBACILLUS ACIDOPHILUS 1 GM PACK PO SCH ×2 (08:42→11:33)
[2017-06-22] MEDS: AZITHROMYCIN 250 MG TAB PO SCH (08:43)
[2017-06-22] MEDS: ASPIRIN 81 MG ECTAB PO SCH (08:43)
[2017-06-22] MEDS: ATORVASTATIN 40 MG TAB PO SCH (08:43)
[2017-06-22] MEDS ORDERED: GUAIFENESIN 600 MG TABCR PO SCH (09:00)
[2017-06-22] MEDS ORDERED: APIXABAN 2.5 MG TAB PO SCH ×2 (12:30)
--- NOTE | 2017-06-22 14:18 | Discharge Instructions ---
Discharge Instructions Date of Service Jun 22, 2017. Admission Reason for Admission: New Onset Afib Discharge Discharge Diagnosis / Problem: Atrial Fibrillation Discharge Goals Goal(s): Decrease discomfort, Improve function, Increase independence, Improve disease control Activity Recommendations Activity Limitations: resume your previous activity Lifting Limitations: no more than 25 pounds, gradually increase as tolerated Exercise/Sports Limitations: rest today, gradually increase as tolerated May Resume Sexual Activity: when tolerated Shower/Bathe: no limitations Driving or Machine Use: Do not drive . Instructions / Follow-Up Instructions / Follow-Up You were admitted to [facility] with new onset atrial fibrillation without symptoms and acute bronchitis. During your stay here you were treated with heparin gtt to prevent clot formation with new onset atrial fibrillation. You were transitioned to oral anticoagulation called [place]. Your HR was stable in the 80s and 90s. Cardiology was consulted and helped to develop this plan - you were stable for discharge to home You have been provided with medications from our pharmacy for 2 days due to the holiday and pharmacies being closed. For acute bronchitis: You were continued on antibiotics during your admission, and finished a 5 day course. Continue taking Prednisone taper as directed below: Take 20 mg ( 2 tabs) starting 06/23. Then take 10 mg ( 1 tab) in the morning on 06/24 and 06/15. Then the prednisone taper will be finished Continue taking Mucinex 600 mg every 12 hours - you can pick this up over the counter at a drug store. Use albuterol inhaler 2 puffs every 4 hours as needed to help with shortness of breath For Atrial Fibrillation: Stop taking Atenolol. You will now start taking metoprolol instead: Take 1 tablet metoprolol succinate 100 mg every evening starting tomorrow, Start taking Eliquis 2.5 mg twice daily starting tonight, 06/22 Follow up: Follow up with your Primary Care Provider within 1 week. Follow up with Cardiology, Dr. Olmedo within 1-2 weeks. Current Hospital Diet Patient's current hospital diet: AHA Diet (Heart Healthy) Discharge Diet Recommended Diet: AHA Diet (Heart Healthy) Pending Studies Studies pending at discharge: no Laboratory Results Hemoglobin A1c Test 06/21/17 07:08 Range/Units Estimated Average Glucose 114 mg/dl Hemoglobin A1c 5.6 4.5-5.6 % Lipid Panel Test 06/21/17 07:08 Range/Units Triglycerides Level 107 0-150 mg/dl Cholesterol Level 151 0-200 mg/dl HDL Cholesterol 49 mg/dl Cholesterol/HDL Ratio 3.1 LDL Cholesterol, Calculated 81 mg/dl Medical Emergencies . Who to Call and When: Medical Emergencies: If at any time you feel your situation is an emergency, please call 911 immediately. . Non-Emergent Contact Non-Emergency issues call your: Primary Care Provider, Orthophotography Technician Call Non-Emergent contact if: you have a fever, temperature is above 100.5, your pain is not controlled, your pain is worsening, your pain is unusual for you, your pain is concerning you, you have any medication questions . Past History Medical & Surgical History: (1) New onset a-fib (2) Acute bronchitis . "Provider Documentation" section prepared by Sara Dukes. . VTE Core Measure Inpt VTE Proph given/why not?: Other Anticoagulation, SCD's
[2017-06-22] MEDS ORDERED: ELQ25 PO (14:20)
[2017-06-22] MEDS ORDERED: METO100T44 PO (14:20)
--- NOTE | 2017-06-22 14:21 | Discharge Summary ---
Discharge Summary Date of Service Jun 22, 2017. Discharge Summary Admission Date: Jun 20, 2017 at 16:13 Discharge Date: Jun 22, 2017 Discharge Disposition: Home Principal Diagnosis: New onset atrial fibrillation Problems/Secondary Diagnoses: New onset atrial fibrillation Acute bronchitis Immunizations: Have You Had Influenza Vaccine: Yes History of Tetanus Vaccine?: Unknown History of Pneumococcal: Yes Pneumococcal Date: Jul 20, 2010 History of Hepatitis B Vaccine: No Procedures: CHEST ONE VIEW PORTABLE CLINICAL HISTORY: Chest pain. Separate atrial fibrillation COMPARISON STUDY: Chest radiograph April 06, 2014. FINDINGS: There is mild elevation of the right hemidiaphragm. No consolidation is identified to suggest pneumonia and there is no evidence of pulmonary edema. Mild cardiomegaly is noted. IMPRESSION: 1. No acute cardiopulmonary findings. 2. Mild cardiomegaly without radiographic evidence of pulmonary edema. Electronically signed by: Pete Yan M.D. 06/20/2017 1:05 PM Dictated Date/Time: 06/20/2017 1:03 PM The status of this report is Signed. CT HEAD WITHOUT CONTRAST (CT) CLINICAL HISTORY: Lightheadedness. Set atrial fibrillation. COMPARISON STUDY: No previous studies for comparison. TECHNIQUE: Axial CT of the brain is performed from the vertex to the skull base. IV contrast was not administered for this examination. A dose lowering technique was utilized adhering to the principles of ALARA. CT DOSE: 638.56 mGycm FINDINGS: No intra or extra-axial mass lesions are visualized. There is no CT evidence of acute cortical infarction. There is no evidence of midline shift. There is no acute hemorrhage. No calvarial fractures are visualized. There are patchy white matter hypodensities likely on a small vessel basis. 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 There is a lacunar type infarct in the region of the left external capsule. There is no evidence of pathologic ventricular dilatation. There is trace fluid within the sphenoid sinus. There is moderately extensive mucosal thickening within the ethmoid sinuses. IMPRESSION: 1. No acute intracranial findings 2. Moderately extensive mucosal thickening within the ethmoid sinuses Electronically signed by: Yeison Brown M.D. 06/20/2017 4:45 PM Dictated Date/Time: 06/20/2017 4:44 PM The status of this report is Signed. Consultations: Cardiology Medication Reconciliation New Medications: Albuterol Hfa (Ventolin Hfa) 200 Puffs/37785 Mcg Aers 2-4 PUFFS INH Q6H PRN for Shortness of Breath, #1 INHALER Metoprolol Succ (Toprol Xl) (Toprol-Xl ) 100 Mg Tabcr 100 MG PO QPM, #30 TAB Apixaban (Eliquis) 2.5 Mg Tab 2.5 MG PO BID for 30 Days, #60 TAB Guaifenesin Ext Rel (Mucinex Ext Rel) 600 Mg Tabcr 600 MG PO Q12 for 7 Days, #14 Continued Medications: Aspirin (Aspirin Ec) 81 Mg Tab 81 MG PO DAILY Atorvastatin (Lipitor) 80 Mg Tab 80 MG PO DAILY, TAB Lisinopril (Prinivil) 5 Mg Tab 5 MG PO DAILY, TAB Nifedipine (Nifedipine Er) 60 Mg Tab 1 TAB PO DAILY, TAB Tramadol (Ultram) 50 Mg Tab 50 MG PO Q8H PRN for Pain, TAB Discontinued Medications: Atenolol (Tenormin) 50 Mg Tab 50 MG PO DAILY, TAB Discharge Exam Subjective Pt evaluation today including: conversation w/ patient, physical exam, chart review, lab review, review of studies Pain: None PO Intake: Good Voiding: no voiding problems The patient was seen and examined this morning. Pt reports doing well today. His son, Ravi is at bedside. Pt denies any chest pain, shortness of breath, palpitations or flutter, shortness of breath. Pt slept well overnight. Still has a slight cough which is nonproductive. Discussion was held regarding likely anticoagulation and further rate control. - Overnight events on tele include afib with rates in the 80s and 90s. ROS: Constitutional: No fever, sweats or chills Eyes: No diplopia, no worsening or blurred vision ENT: normal hearing, no trouble swallowing Respiratory: No cough, sputum, dyspnea at rest or on exertion Cardiovascular: No chest pain, tightness or palpitations Abdomen: No pain, nausea, vomiting, diarrhea or constipation Musculoskeletal: No joint pain, calf pain, swelling Neurologic: No weakness, numbness/tingling, or balance problems Physical Exam General Appearance: WD/WN, no apparent distress Eyes: PERRL, EOMI ENT: hearing grossly normal, pharynx normal Neck: supple, no JVD Respiratory/Chest: no respiratory distress, no accessory muscle use, + pertinent finding (on room air, breath sounds improved, faint +exp wheeze. 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.) Hospital Course History of Present Illness Mr. Hall has been feeling ill for the past five days with running nose and cough with thick yellow mucous and wheezing, no fever or chills, no sob. has bronchitis. He felt that he was improving but since his was going to the doctor, he thought he would go too. When the pcp listened to him at the office, he was in an irregular rhythm so an EKG was performed and he was found to be in a.fib which is new for him. He does feel lightheaded when he stands but otherwise denies cardiac symptoms. PE: General: no distress Eyes: normal inspection, PERLL Respiratory: chest non tender, coarse bases with expiratory wheezing bilaterally , no respiratory distress, no accessory muscle use Cardiac: regular rate and rhythm, no rub or gallop, no murmur, no edema, GI/: active bowel sounds, no abd pain or tenderness, soft, non distended Extremities: normal range of motion, normal strength, non tender Neuro/Psych: alert and oriented x 3, normal mood and affect Skin: normal color, dry Hospital course: This is a 86 yo M presenting with new onset A.fib and acute bronchitis New onset A.fib Elevated troponin EKG changes - admit tele - Last EKG was 2012 at the time of his [place], at time of admission he appeared to have some depressions in his lateral leads - Echo completed: * -- Conclusions -- * The left ventricle is normal in size. * There is severe concentric left ventricular hypertrophy. * Left ventricular systolic function is mildly reduced. * Ejection Fraction = 40-45%. * The distal anterior wall, apex inferoapex, and distal septum are severely hypokinetic. * The right ventricular cavity size is enlarged (proximal parasternal long axis right ventricular outflow tract dimension >3.3 cm). * The right ventricular systolic function is normal as assessed by tricuspid annular plane systolic excursion (TAPSE) (normal >1.5 cm). * The left atrium is moderately dilated. * Aortic valve sclerosis mild, without significant aortic valvular stenosis. * Mild aortic regurgitation. * There is mild to moderate mitral regurgitation. * Right ventricular systolic pressure is elevated at 30-40mmHg. - consult cardiology - appreciate recs- await cards input for longer term anticoagulation - Pt follows with Dr. Olmedo as an outpatient - Heparin gtt off now - Dr. Ching ordered Eliquis 2.5 mg BID today for anticoagulation, and will switch from atenolol to metoprolol succinate 100 mg QPM as atenolol is renally excreted. 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 Follow up with cards requested in 1-2 weeks. - CT scan of head for lightheadedness - negative - showing ethmoid sinus with thickened mucous likely sinusitis - Troponins trending back down on 3rd set. - continue atenolol 50 mg daily, atorvastatin 80 mg daily and asa 81 mg daily - Holding lisinopril 5 mg for now with slight bump in Cr. Acute bronchitis - with his self treatment with amoxicillin and and Rocephin in ED, he has had 3 days of abx at time of admission - 06/21 = day #5. Finish last day - duonebs prn - prednisone 20 mg daily (day # 2) - continue one more day x 20 mg and then 10 mg x 2 days. - Provided from pharmacy due to holiday and pharmacy being closed. - BCx NGTD, pt not producing sputum for culture, flu negative - no leukocytosis - Mucinex for pulmonary toilet, flutter therapy - Will order albuterol inhaler 2 puffs Q4H prn for shortness of breath. CAD, HLD, HTN - continue ASA, atenolol, statin - EKG with chest pain CKD stage III - renal dosing medications, avoid nephrotoxins - prp am - baseline appears to be around 1.6, - 1.76 today and improving. Will ask PCP to check BMP if felt indicated at fu within 1 week. - Holding home lisinopril during admission but can be resumed upon discharge - hold of on IVF as patient has EF of 35% on echo 2012 - will encourage Po intake. CODE STATUS: DNR Disposition: From home, lives with . Discharge to home today. Total Time Spent: Greater than 30 minutes This includes examination of the patient, discharge planning, medication reconciliation, and communication with other providers. Discharge Instructions Please refer to the electronic Patient Visit Report (Discharge Instructions) for additional information. Follow-Up Follow up with your Primary Care Provider within 1 week. Follow up with cardiology within 1-2 weeks.
[2017-06-22] MEDS ORDERED: GFNSR600 PO (14:24)
[2017-06-22] MEDS ORDERED: VNTHFA/IN INH (14:24)
--- NOTE | 2017-06-22 14:29 | CARDIOLOGY CONSULTATION ---
DATE OF CONSULTATION: 06/22/2017 REQUESTING: Dr. Tovar. ECLECTIC DOCTOR: Alonso Ching DO, [facility] for Dr. Damien Olmedo, who is the patient's primary canteen operator. REASON FOR CONSULTATION: New onset asymptomatic atrial fibrillation. The patient was sent to the Emergency Room after an EKG as an outpatient revealed atrial fibrillation with a controlled ventricular response and a right bundle branch block with a prior inferior TX. There were no acute ST-T changes. He had gone to the doctors with his after complaining of increasing cough and cold-like symptoms with an upper respiratory tract infection. During the exam, he was found to be irregular and an EKG was performed. Outside the cold and flu symptoms, he actually is unaware that he is in atrial fibrillation. He has no fluttering or skips or feeling his heart racing. He has no palpitations. He denies any lightheadedness or dizziness or increasing shortness of breath. He climbs a flight of stairs at home without any difficulty and he is relatively active without any significant issues. He denies any PND or orthopnea. He notes that his upper respiratory tract symptoms have improved. He denies any dark black tarry stools or blood in stool. He denies any recent falls. The rest of systems is otherwise negative. PAST MEDICAL HISTORY: 1. Anterolateral ST-elevation TX in February 2013 with a bare-metal stent placed to the LAD. 2. Ischemic cardiomyopathy with mild left ventricular dysfunction and EF in the range of 40%-45% with wall motion abnormalities involving the distal LAD territory. 3. Chronic kidney disease with a creatinine of approximately 1.6-1.7. 4. BPH. 5. Hypertension. 6. Hypercholesterolemia. SOCIAL HISTORY: He quit smoking 50 years ago. He socially drinks alcohol. He is and lives with his . He is a retired [employer]. ALLERGIES: SULFA. OUTPATIENT MEDICATIONS: Include aspirin, atenolol, atorvastatin, lisinopril, and nifedipine. PHYSICAL EXAMINATION: GENERAL: He is awake, alert, and oriented x3. He is in no acute distress. He looks younger than his stated age. He is quite spry for his age. VITAL SIGNS: His heart rate is 92, respirations 16, blood pressure 153/90 and he is 95% on room air. Of note, his previous blood pressures have all been very well controlled before this morning. HEENT: Mildly reduced carotid upstrokes. No evidence of carotid bruits. Jugular venous pressure appeared normal. Sclerae is anicteric. His hearing is diminished. LUNGS: Globally decreased breath sounds with occasional rhonchi and inspiratory and expiratory wheezing. HEART: Irregular rate and rhythm. No appreciable murmurs, rubs or gallops. ABDOMEN: Soft, nontender, and nondistended. Positive bowel sounds. EXTREMITIES: No clubbing or cyanosis. Mild bilateral lower extremity edema. PSYCHIATRIC: His affect appeared appropriate. Chest x-ray, no acute cardiopulmonary findings. CT of his head, moderate extensive mucosal thickening of the ethmoid sinuses. No acute intracranial findings. LABORATORY STUDIES: His LDL is 81. His BUN was 33 with a creatinine of 1.76. Troponin peak was 0.074 and is trending down. His TSH is 1.69. His hemoglobin is 13.9 and his platelet count is 198. Outpatient EKG, atrial fibrillation with controlled ventricular response, right bundle branch block, inferior posterior TX, age indeterminate, no acute ST-T changes, and left axis deviation. IMPRESSION: 1. Atrial fibrillation with controlled ventricular response of unknown duration, which appears to be asymptomatic. 2. Chronic kidney disease with a creatinine of 1.7. 3. 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 4. Mild ischemic cardiomyopathy with a distal LAD wall motion abnormality. The patient feels quite well outside of his upper respiratory tract symptoms. He is currently on atenolol 50 mg daily. His rates here seemed to be reasonably well controlled. The only issue chcf with atenolol is it is renally excreted. I would have him wear a Holter monitor as an outpatient and follow up with Dr. Olmedo to make sure that his rate is adequately controlled. He has a significantly elevated CHADS2-VASc score and in light of that, he should be anticoagulated as he is very functional and has not had any falls and his CBC is stable. In light of that given the fact that his creatinine is greater than 1.5 and he is older the age of 78, we will place him on apixaban 2.5 mg b.i.d. as heparin drip can be stopped and apixaban can be started in an hour in discussion with the pharmacy He should see Dr. Olmedo or one of their physician assistants in the next couple weeks to arrange for Holter monitoring. If there is a concern for worsening renal dysfunction, his atenolol should be switched to something like metoprolol, which is not renally excreted. Thank you for allowing us to participate in his care.
[2017-06-22] MEDS ORDERED: ALBUTEROL HFA 8 GM INHALER INH PRN (14:30)
== END 2017-06-22 15:55 | disposition home or self-care (01) | DRG 203 ==
LOC: EDBD 11:36 → C.EDB 11:37 → ENRESERV 15:54 → C.2T 16:13
PROVIDERS: ADMIT Internal Medicine; ATTEND Internal Medicine
DX: J20.9 Acute bronchitis, unspecified (principal); I48.91 Unspecified atrial fibrillation; I25.10 Atherosclerotic heart disease of native coronary artery without angina pectoris; N18.3 Chronic kidney disease, stage 3 (moderate); I12.9 Hypertensive chronic kidney disease with stage 1 through stage 4 chronic kidney disease, or unspecified chronic kidney disease; E78.5 Hyperlipidemia, unspecified; I25.2 Old myocardial infarction; Z66 Do not resuscitate; Z79.82 Long term (current) use of aspirin; Z79.899 Other long term (current) drug therapy; Z88.2 Allergy status to sulfonamides; Z95.5 Presence of coronary angioplasty implant and graft

== ENCOUNTER 2017-11-21 19:57 | Emergency (ER) | payer BC ==
[~2017-11-21] VITALS: Ht 167.6 cm; Wt 96.7 kg
[~2017-11-21 19:57] MED LIST changes: -ADLSR60 PO; -ASPI81TA25 PO; +ASPI81TA28 PO; -ATEN50TA PO; -ATOR-24 PO; +ATOR-26 PO; -CLOP1TAB5 PO; +ELQ25 PO; +GFNSR600 PO; +LISI-729 PO; +METO100T44 PO; +NIFE60TA66 PO; +VNTHFA/IN INH
[2017-11-21 20:02] VITALS: BP 145/76; PULSE 65; TEMP 36.7; O2SAT 93; Ht 167.6 cm; Wt 96.7 kg
[2017-11-21 20:38] LABS: BASO % 0.3 %; BASO ABS # 0.03 K/uL (0-0.2); EOS % 6.7 %; HEMATOCRIT 44.1 % (42-52); IG# 0.04 K/uL (0.00-0.02); LYMPH % 34.3 %; LYMPH ABS # 3.56 K/uL (1.2-3.4); MEAN CELL VOLUME 89.8 fL (80-100); MEAN CORPUSCULAR HEMOGLOBIN 30.5 pg (25-34); MEAN PLATELET VOLUME 9.9 fL (7.4-10.4); MONO % 8.3 %; MONO ABS # 0.86 K/uL (0.11-0.59); NEUT ABS # 5.19 K/uL (1.4-6.5); PLATELET COUNT 215 K/uL (130-400); RED CELL DISTRIBUTION WIDTH SD 49.6 fL (36.4-46.3); WHITE BLOOD COUNT 10.38 K/uL (4.8-10.8)
[2017-11-21 20:48] LABS: PTT PATIENT 28.9 SECONDS (21.0-31.0)
--- NOTE | 2017-11-21 21:01 | DIAGNOSTIC IMAGING REPORT ---
L HAND MIN 3 VIEWS ROUTINE CLINICAL HISTORY: Left hand swelling. Evaluate for fracture. COMPARISON: Left hand radiographs November 10, 2007. FINDINGS: No acute fracture is identified within the left hand. 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 There is severe joint space narrowing with osteophytosis within multiple interphalangeal joints of the left hand as well as moderate arthritis within the metacarpophalangeal joints. No suspicious osseous lesion is present. IMPRESSION: 1. No acute fracture or dislocation of the left hand. 2. 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 Electronically signed by: Pete Yan M.D. 11/21/2017 9:00 PM Dictated Date/Time: 11/21/2017 8:58 PM
[2017-11-21 21:16] LABS: CALCIUM 8.6 mg/dl (8.5-10.1); CREATININE 1.94 mg/dl (0.60-1.40)
--- NOTE | 2017-11-21 21:48 | EMERGENCY ROOM VISIT NOTE ---
History Report prepared by Wilberto: Jennifer Johnson Under the Supervision of: Dr. Pavan Powell M.D. First contact with patient: 20:04 Chief Complaint: HAND PAIN/INJURY Stated Complaint: L HAND PAIN, SWELLING History of Present Illness The patient is an 87 year old male who presents to the Emergency Room with complaints of persistent left hand swelling starting this evening. His hand feels tight and he has pain with squeezing his hand. He denies any trauma or injury. He denies any chest pain or SOB. He is on a blood thinner. He denies any history of blood clots. Source of History: patient Onset: this evening Position: hand (left) Quality: other (swelling) Timing: other (persistent) Associated Symptoms: No chest pain, No SOB Review of Systems See HPI for pertinent positives & negatives. A total of 10 systems reviewed and were otherwise negative. Past Medical & Surgical Medical Problems: (1) Arthroscopy of knee joint (2) Benign hypertension (3) Enlarged prostate (4) Excision of skin cancer (5) Hypercholesterolemia (6) New onset a-fib (7) New onset a-fib (8) Prostate surgery (9) Skin cancer Old medical records were reviewed. Nurse's notes were reviewed and I agree with. Family History Noncontributory secondary to age. Social History Smoking Status: Former Smoker Alcohol Use: none Drug Use: none Marital Status: Housing Status: lives with significant other Occupation Status: retired Current/Historical Medications Scheduled Apixaban (Eliquis), 2.5 MG PO BID Aspirin (Aspirin Ec), 81 MG PO DAILY Atorvastatin (Lipitor), 80 MG PO DAILY Guaifenesin Ext Rel (Mucinex Ext Rel), 600 MG PO Q12 Lisinopril (Prinivil), 5 MG PO DAILY Metoprolol Succ (Toprol Xl) (Toprol-Xl ), 100 MG PO QPM Nifedipine (Nifedipine Er), 1 TAB PO DAILY Scheduled PRN Albuterol Hfa (Ventolin Hfa), 2-4 PUFFS INH Q6H PRN for Shortness of Breath Tramadol (Ultram), 50 MG PO Q8H PRN for Pain Allergies Coded Allergies: Sulfa Antibiotics (Verified Allergy, Unknown, `, 06/20/17) Physical Exam Vital Signs Date Time Temp Pulse Resp B/P (MAP) Pulse Ox O2 Delivery O2 Flow Rate FiO2 11/21/17 20:02 36.7 65 20 145/76 93 Room Air Physical Exam General: Non-ill appearing older male, mildly hard of hearing, in no acute distress. HEENT: Normal cephalic atraumatic. Pupils are equal round and reactive to light. Extraocular movements are intact. Oropharynx is pink with moist mucous membranes. No swelling of the mouth lips or tongue. Neck: Supple with a midline trachea. No meningeal signs or stiffness, no JVD or bruits. No Stridor. Chest: Clear to auscultation bilaterally. No wheezes or rhonchi. No increased work of breathing. Heart: regular rate and rhythm. Abdomen: Soft nontender, nondistended without rebound guarding or rigidity. Extremities: Moderately sized bruise on the dorsal aspect of the left palm most pronounced at the base of the index finger and thumb. Normal pulses. Normal motor and sensation. Normal capillary refill. No evidence of compartment syndrome or cellulitis. Spine/Back. Non tender to palpation. No CVA tenderness Skin: Good turgor without rashes. Neurologic exam: Cranial nerves two through 12 are intact. Motor and sensation are intact and symmetrical throughout. Medical Decision & Procedures ER Provider Diagnostic Interpretation: X-ray results as stated below per interpretation by me and the radiologist: L HAND MIN 3 VIEWS ROUTINE CLINICAL HISTORY: Left hand swelling. Evaluate for fracture. COMPARISON: Left hand radiographs November 10, 2007. FINDINGS: No acute fracture is identified within the left hand. 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 There is severe joint space narrowing with osteophytosis within multiple interphalangeal joints of the left hand as well as moderate arthritis within the metacarpophalangeal joints. No suspicious osseous lesion is present. IMPRESSION: 1. No acute fracture or dislocation of the left hand. 2. 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 Electronically signed by: Pete Yan M.D. 11/21/2017 9:00 PM Dictated Date/Time: 11/21/2017 8:58 PM Laboratory Results 11/21/17 20:30 Red Blood Count 4.91, Mean Corpuscular Volume 89.8, Mean Corpuscular Hemoglobin 30.5, Mean Corpuscular Hemoglobin Concent 34.0, Mean Platelet Volume 9.9, Neutrophils (%) (Auto) 50.0, Lymphocytes (%) (Auto) 34.3, Monocytes (%) (Auto) 8.3, Eosinophils (%) (Auto) 6.7, Basophils (%) (Auto) 0.3, Neutrophils # (Auto) 5.19, Lymphocytes # (Auto) 3.56, Monocytes # (Auto) 0.86, Eosinophils # (Auto) 0.70, Basophils # (Auto) 0.03 11/21/17 20:30 Test 11/21/17 20:30 White Blood Count 10.38 K/uL (4.8-10.8) Red Blood Count 4.91 M/uL (4.7-6.1) Hemoglobin 15.0 g/dL (14.0-18.0) Hematocrit 44.1 % (42-52) Mean Corpuscular Volume 89.8 fL (80-100) Mean Corpuscular Hemoglobin 30.5 pg (25-34) Mean Corpuscular Hemoglobin Concent 34.0 g/dl (32-36) Platelet Count 215 K/uL (130-400) Mean Platelet Volume 9.9 fL (7.4-10.4) Neutrophils (%) (Auto) 50.0 % Lymphocytes (%) (Auto) 34.3 % Monocytes (%) (Auto) 8.3 % Eosinophils (%) (Auto) 6.7 % Basophils (%) (Auto) 0.3 % Neutrophils # (Auto) 5.19 K/uL (1.4-6.5) Lymphocytes # (Auto) 3.56 K/uL (1.2-3.4) Monocytes # (Auto) 0.86 K/uL (0.11-0.59) Eosinophils # (Auto) 0.70 K/uL (0-0.5) Basophils # (Auto) 0.03 K/uL (0-0.2) RDW Standard Deviation 49.6 fL (36.4-46.3) RDW Coefficient of Variation 15.0 % (11.5-14.5) Immature Granulocyte % (Auto) 0.4 % Immature Granulocyte # (Auto) 0.04 K/uL (0.00-0.02) Prothrombin Time 10.8 SECONDS (9.0-12.0) Prothromb Time International Ratio 1.0 (0.9-1.1) Activated Partial Thromboplast Time 28.9 SECONDS (21.0-31.0) Partial Thromboplastin Ratio 1.1 Anion Gap 6.0 mmol/L (3-11) Est Creatinine Clear Calc Drug Dose 28.1 ml/min Estimated GFR () 34.6 Estimated GFR (Non- 29.8 BUN/Creatinine Ratio 15.2 (10-20) Calcium Level 8.6 mg/dl (8.5-10.1) Laboratory studies as stated above per my review. ED Course 2006: Past medical records reviewed. The patient was evaluated in room D6, and a complete history and physical examination were performed. 2139: Upon reevaluation, the patient is resting comfortably. I discussed the results and treatment plan with him. He verbalized agreement of the treatment plan. The patient was discharged home. Medical Decision Differentials include, but are not limited to; bruise, fracture, anticoagulation , compartment syndrome, infection. This patient comes in as described above. he has some swelling in his right hand it looks like a bruise and he is on anticoagulation. He is neurologically and neurovascularly intact. he has good capillary refill and pulse exam and no evidence of compartment syndrome. It is not red or warm. X-rays are unremarkable. His blood work is unremarkable. His ring was removed in case there is any additional swelling. He has had no progression since he is here he is to rest and elevate. use an Mor wrap monitor for signs of increasing swelling or compartment syndrome, specifically he was told to return if: increasing pain or swelling, pain in the fingers, numbness or weakness, fever, any new problems or concerns. Follow-up with his doctor on Friday for recheck and return to the ER if :symptoms worsen patient is family are happy the plan was discharged to home. Medication Reconcilliation Current Medication List: was personally reviewed by me Blood Pressure Screening Patient's blood pressure: Elevated blood pressure Blood pressure disposition: Elevated BP felt to be situational Impression Primary Impression: Swelling of left hand Scribe Attestation The scribe's documentation has been prepared under my direction and personally reviewed by me in its entirety. I confirm that the note above accurately reflects all work, treatment, procedures, and medical decision making performed by me. Departure Information Dispostion Home / Self-Care Referrals Pavan Morales D.O. Forms HOME CARE DOCUMENTATION FORM, IMPORTANT VISIT INFORMATION Patient Instructions My [facility] Additional Instructions Rest. Ice immediately and and elevate Use Mor wrap. Return if increasing pain or swelling, numbness or weakness, worsening of symptoms, any new problems or concerns Follow-up with your doctor for recheck on Friday or return here over the weekend if symptoms worsen
== END 2017-11-21 21:56 | disposition home or self-care (01) ==
LOC: C.EDB 19:59 → C.EDD 21:56
DX: M79.89 Other specified soft tissue disorders (principal); I10 Essential (primary) hypertension; I48.91 Unspecified atrial fibrillation; Z87.891 Personal history of nicotine dependence; Z79.82 Long term (current) use of aspirin; Z88.2 Allergy status to sulfonamides